=== PATIENT | female | born 1950 | race Caucasian/White ===

== ENCOUNTER → 2020-09-10 | Outpatient (CLI) | payer MEDICARE | END | disposition home or self-care (01) | LOC: RAD 09:51 | PROVIDERS: ATTEND Internal Medicine Gastroenterology | DX: K44.9 Diaphragmatic hernia without obstruction or gangrene (principal); R11.2 Nausea with vomiting, unspecified; E11.65 Type 2 diabetes mellitus with hyperglycemia; R14.0 Abdominal distension (gaseous); R93.5 Abnormal findings on diagnostic imaging of other abdominal regions, including retroperitoneum; R13.19 Other dysphagia; R15.2 Fecal urgency; B96.81 Helicobacter pylori [H. pylori] as the cause of diseases classified elsewhere; M62.9 Disorder of muscle, unspecified; E89.41 Symptomatic postprocedural ovarian failure | CPT/HCPCS: 78264; 82962; A9541 ==

== ENCOUNTER → 2020-11-03 | Outpatient (CLI) | payer MEDICARE | END | disposition home or self-care (01) | LOC: RAD 09:31 | PROVIDERS: ATTEND Registered Nurse | DX: R13.12 Dysphagia, oropharyngeal phase (principal); K21.9 Gastro-esophageal reflux disease without esophagitis; K59.00 Constipation, unspecified; R19.7 Diarrhea, unspecified; R11.2 Nausea with vomiting, unspecified; A04.9 Bacterial intestinal infection, unspecified; E11.65 Type 2 diabetes mellitus with hyperglycemia | CPT/HCPCS: 74230 ==